=== PATIENT | female | born 1995 | race Caucasian/White ===

== ENCOUNTER 2016-10-05 21:09 | Emergency (ER) | payer OTHER ==
[2016-10-05 22:30] LABS: URINE APPEARANCE SL CLOUDY; URINE BILIRUBIN NEGATIVE (NEGATIVE); URINE BLOOD NEGATIVE (NEGATIVE); URINE COLOR YELLOW; URINE GLUCOSE (UA) NEGATIVE (NEGATIVE); URINE LEUKOCYTE ESTERASE 2+ (NEGATIVE); URINE NITRITE NEGATIVE (NEGATIVE); URINE PROTEIN NEGATIVE (NEGATIVE); URINE UROBILINOGEN NEGATIVE (0-1 mg/dl)
[2016-10-05 22:31] LABS: URINE RBC 0 /hpf
[2016-10-05 22:32] LABS: URINE BACTERIA 1+
[2016-10-05] MEDS ORDERED: SODIUM CHLORIDE 0.9% 1,000 ML ONE (22:57)
[2016-10-05 23:11] LABS: ABSOLUTE NEUTROPHIL COUNT 8.7 K/mm3 (1.8-7.7); BASO # 0.1 K/mm3 (0.0-0.2); BASO % 0.4 % (0.2-1.0); EOS # 0.2 (0.0-0.5); EOS % 1.4 % (0.9-2.9); HEMATOCRIT 39.2 % (37.0-47.0); HEMOGLOBIN 12.7 gm/l (12.0-16.0); IMM NEUT% 0.2 % (0-1); LYMPH # 3.9 (1.0-4.8); LYMPH % 28.3 % (15-45); MEAN CELL VOLUME 90.3 fl (81.0-99.0); MEAN CORPUSCULAR HEMOGLOBIN 29.3 pg (27.0-31.0); MEAN CORPUSCULAR HGB CONC 32.4 g/dl (33.0-37.0); MEAN PLATELET VOLUME 10.8 fl (7.4-10.4); MONO % 7.4 % (4-12); NEUT % 62.3 % (43-75); PLATELET COUNT 262 K/mm3 (130-400)
[2016-10-05] MEDS ORDERED: CEFTRIAXONE SODIUM 1 G VIAL ONE (23:48)
[2016-10-05] MEDS ORDERED: NS 0.9% (MINI-BAG PLUS) 100 ML IV ONE (23:49)
--- NOTE | 2016-10-06 07:27 | US ---
OB COMP <14 WKS, OB TRANSVAGINAL HISTORY: Abdomen pain for 3 days. The patient is , expected to be at 6 weeks 4 days gestational age. COMPARISONS: None. FINDINGS: Transabdominal and transvaginal ultrasonography demonstrates an intrauterine fluid collection. There is a visible yolk sac though a pole is not yet observed. The mean sac diameter measures 1.34 cm, equivalent to a gestational age of 5 weeks 4 days. The calculated sonographic EDC is 06/03/2017. No adjacent fluid collections are visualized. The maternal right ovary measures 2.0 x 2.5 x 2.1 cm. The left ovary measures 3.1 x 2.6 x 2.4 cm. There is a 1.5 cm cyst seen within the maternal left ovary, likely a corpus luteal cyst. A small to moderate quantity of free fluid is seen within the pelvic cul-de-sac. IMPRESSION: 1. Findings most consistent with a single intrauterine gestation with mean ultrasound gestational age of 5 weeks 4 days. The calculated sonographic EDC is 06/03/2017. 2. A suspected 1.5 cm maternal left ovarian corpus luteal cyst. 3. A mild to moderate quantity of free fluid within the pelvis. 4. 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 The findings were called to the emergency room at 0012 hours, 10/06/2016, by [facility].
== END 2016-10-06 00:47 | disposition home or self-care (01) ==
LOC: ED 21:09
DX: O23.41 Unspecified infection of urinary tract in pregnancy, first trimester (principal); Z3A.01 Less than 8 weeks gestation of pregnancy
CPT/HCPCS: 84702; 85025; 87086; 81001; 76817; 76801; 99284; 96365; 99283; J0696; J7030